=== PATIENT | female | born 1990 | race Two or more races ===

== ENCOUNTER 2018-07-05 11:40 | Observation (INO) | payer MEDICAID ==
[~2018-07-05] VITALS: Ht 154.9 cm; Wt 63.5 kg
[2018-07-05] MEDS ORDERED: ONDANSETRON HCL 4 MG/2 ML VIAL IV ONE ×2 (12:00→15:00)
[2018-07-05] MEDS ORDERED: SODIUM CHLORIDE 0.9% 1,000 ML IVB ONE (12:00)
[2018-07-05] MEDS ORDERED: DEXTROSE (50%) 50ML SYRG IV ONE (12:45)
[2018-07-05 12:53] LABS: Basophils # (auto) 0.2 uL; Basophils % (auto) 1.6 % (0.0-2.0); Eosinophils # (auto) 0.4 uL; Eosinophils % (auto) 3.6 % (0.0-7.0); Hematocrit 33.8 % (36.0-46.0); Hemoglobin 11.1 g/dL (12.2-16.2); Lymphocytes # (auto) 1.4 uL; Lymphocytes % (auto) 13.4 % (10.0-50.0); Mean Corpuscular Hemoglobin 27.7 pg (28.0-32.0); Mean Corpuscular Hgb Conc. 32.7 g/dL (32.0-36.0); Mean Corpuscular Volume 84.6 fL (80.0-100.0); Monocytes # (auto) 0.3 uL; Monocytes % (auto) 2.9 % (0.0-12.0); Neutrophils # (auto) 8.2 uL; Neutrophils % (auto) 78.5 % (37.0-80.0); Platelet Count (auto) 335 10^3/uL (140-450); Red Cell Distribution Width 13.3 % (11.8-14.3); White Blood Cell 10.4 10^3/uL (4.4-10.8)
[2018-07-05] MEDS ORDERED: D5W/SOD CHLO 0.9% 1,000 ML IV ONE (13:00)
[2018-07-05] MEDS ORDERED: D5W/SOD CHLO 0.9% 500 ML IV ONE ×2 (13:15→18:00)
[2018-07-05 13:31] LABS: Albumin 2.7 g/dL (3.4-5.0); BUN/Creatinine Ratio 13.2; Calcium 7.6 mg/dL (8.5-10.1); Magnesium 1.9 mg/dL (1.6-2.6); Potassium 3.5 mmol/L (3.5-5.1)
[2018-07-05 13:34] LABS: Bilirubin, Total 0.2 mg/dL (0.2-1.0); Total Protein 6.8 g/dL (6.4-8.2)
[2018-07-05 13:52] LABS: Amylase 47 U/L (25-115); Lipase 67 U/L (73-393)
[2018-07-05 14:06] LABS: INR 0.93 (0.9-1.15)
[2018-07-05] MEDS ORDERED: METOCLOPRAMIDE HCL 5MG/ml INJ 2ml VIAL IV ONE (14:15)
[2018-07-05] MEDS ORDERED: MORPHINE SULFATE 4 MG/ML SYR/VIAL IV ONE (15:00)
[2018-07-05 15:32] LABS: Urine Bacteria FEW /hpf (None Seen); Urine Blood Negative /uL (Negative); Urine Specific Gravity 1.006 (1.001-1.035); Urine WBC 1 /hpf (0 - 5)
[2018-07-05 15:50] LABS: Alcohol, Urine < 3.0 mg/dL (0-5); Amphetamine Screen, Urine NEGATIVE (NEGATIVE); Barbiturate Scree,Urine NEGATIVE (NEGATIVE); Benzodiazephine Screen, Urine NEGATIVE (NEGATIVE); Cannabinoid Screen, Urine POSITIVE (NEGATIVE); Cocaine Screen, Urine NEGATIVE (NEGATIVE); Opiate Scree,Urine NEGATIVE (NEGATIVE); Phencyclidine Screen, Urine NEGATIVE (NEGATIVE)
[2018-07-05] MEDS ORDERED: cefTRIAXone 1GM/10ml IVPUSH 10 ML IV ONE (16:30)
[2018-07-05 18:26] VITALS: BP 109/71
== END 2018-07-05 18:38 | disposition short-term general hospital (02) | DRG 566 ==
LOC: ER 11:40 → EDBD 11:40 → OVERFLOW 11:41 → ER 18:38
PROVIDERS: ADMIT Family Medicine; ATTEND Family Medicine
DX: O21.9 Vomiting of pregnancy, unspecified (principal); O26.892 Other specified pregnancy related conditions, second trimester; R10.9 Unspecified abdominal pain; Z3A.18 18 weeks gestation of pregnancy
CPT/HCPCS: 36415; 76805; 80053; 80307; 81001; 82150; 82962; 83690; 83735; 84702; 85025; 85610; 85730; 96361; 96374; 96375; 96376; 99285; G0378; J0696; J2270; J2405; J2765; J7030; J7042; J7060

== ENCOUNTER 2018-08-11 21:25 | Emergency (ER) | payer MEDICAID ==
[~2018-08-11] VITALS: Ht 152.4 cm; Wt 71.2 kg
[2018-08-11] MEDS ORDERED: ONDANSETRON HCL 4 MG/2 ML VIAL ONE (21:31)
[2018-08-11] MEDS ORDERED: ONDANSETRON HCL 4 MG/2 ML VIAL IV ONE ×2 (21:45→22:30)
[2018-08-11 22:28] LABS: Basophils # (auto) 0.1 uL; Basophils % (auto) 0.4 % (0.0-2.0); Eosinophils # (auto) 0.1 uL; Eosinophils % (auto) 0.4 % (0.0-7.0); Hematocrit 35.9 % (36.0-46.0); Hemoglobin 11.4 g/dL (12.2-16.2); Lymphocytes # (auto) 2.2 uL; Lymphocytes % (auto) 13.3 % (10.0-50.0); Mean Corpuscular Hemoglobin 27.4 pg (28.0-32.0); Mean Corpuscular Hgb Conc. 31.7 g/dL (32.0-36.0); Mean Corpuscular Volume 86.4 fL (80.0-100.0); Monocytes # (auto) 0.5 uL; Neutrophils # (auto) 13.6 uL; Neutrophils % (auto) 82.9 % (37.0-80.0); Nucleated Red Blood Cells % 0.1 %; Platelet Count (auto) 398 10^3/uL (140-450); Red Blood Cells 4.16 10^6/uL (4.0-5.20); Red Cell Distribution Width 15.2 % (11.8-14.3); White Blood Cell 16.4 10^3/uL (4.4-10.8)
[2018-08-11 22:42] LABS: Alanine Aminotransferase 21 U/L (13-56); Anion Gap 13 (5-15); Aspartate Aminotransferase 19 U/L (15-37); BUN/Creatinine Ratio 15.7; Blood Urea Nitrogen 8 mg/dL (7-18); Calcium 8.6 mg/dL (8.5-10.1); Carbon Dioxide 19 mmol/L (21-32); Chloride 106 mmol/L (98-107); GFR African American 187 mL/min; GFR Non-African American 155 mL/min; Glucose 103 mg/dL (74-106); Potassium 3.6 mmol/L (3.5-5.1); Sodium 138 mmol/L (136-145)
[2018-08-11 22:45] LABS: Alkaline Phosphatase 128 U/L (45-117); Bilirubin, Total 0.3 mg/dL (0.2-1.0); Total Protein 7.9 g/dL (6.4-8.2)
[2018-08-11] MEDS ORDERED: METOCLOPRAMIDE HCL 5MG/ml INJ 2ml VIAL IV ONE (23:45)
[2018-08-12] MEDS ORDERED: MVI in SODIUM CHLORIDE 0.9% 1,010 ML ONE (00:07)
[2018-08-12] MEDS ORDERED: ALUM & MAG HYDROX-SIMETH LIQ(MAALOX) 30 ML PO ONE (01:30)
[2018-08-12] MEDS ORDERED: ONDANSETRON HCL 4 MG/2 ML VIAL ONE (01:42)
[2018-08-12] MEDS ORDERED: ONDANSETRON HCL 4 MG/2 ML VIAL IV ONE (01:45)
[2018-08-12] MEDS ORDERED: SODIUM CHLORIDE 0.9% 1,000 ML IV ONE (01:45)
[2018-08-12 03:48] VITALS: BP 122/70
[2018-08-12] MEDS ORDERED: MULTIPLE VITAMIN IV SCH (12:00)
[2018-08-12] MEDS ORDERED: FOLIC ACID IV SCH (12:00)
[2018-08-12] MEDS ORDERED: [UNRECOGNIZED DRUG - OTHER] IV SCH (12:00)
[2018-08-12] MEDS ORDERED: THIAMINE IV SCH (12:00)
== END 2018-08-12 04:01 | disposition short-term general hospital (02) ==
LOC: ER 21:25 → EDBD 21:25 → ER 08-12 04:01
DX: O21.0 Mild hyperemesis gravidarum (principal); O26.892 Other specified pregnancy related conditions, second trimester; O99.342 Other mental disorders complicating pregnancy, second trimester; F41.9 Anxiety disorder, unspecified; E86.0 Dehydration; D72.829 Elevated white blood cell count, unspecified; Z3A.23 23 weeks gestation of pregnancy
CPT/HCPCS: 36415; 76805; 80053; 83690; 85025; 96361; 96365; 96375; 96376; 99285; J2405; J2765; J3411; J3475; J7030

== ENCOUNTER 2018-08-21 15:42 | Emergency (ER) | payer MEDICAID ==
[~2018-08-21] VITALS: Ht 152.4 cm; Wt 68.9 kg
[2018-08-21 13:57] LABS: Basophils # (auto) 0 uL; Basophils % (auto) 0.3 % (0.0-2.0); Eosinophils # (auto) 0.1 uL; Hematocrit 30.2 % (36.0-46.0); Lymphocytes # (auto) 1.3 uL; Lymphocytes % (auto) 13.3 % (10.0-50.0); Mean Corpuscular Hemoglobin 28.1 pg (28.0-32.0); Mean Corpuscular Hgb Conc. 33.1 g/dL (32.0-36.0); Monocytes # (auto) 0.3 uL; Monocytes % (auto) 2.7 % (0.0-12.0); Neutrophils # (auto) 8.3 uL; Neutrophils % (auto) 82.7 % (37.0-80.0); Platelet Count (auto) 401 10^3/uL (140-450); Red Blood Cells 3.55 10^6/uL (4.0-5.20); White Blood Cell 10.1 10^3/uL (4.4-10.8)
[2018-08-21 14:15] LABS: Albumin 2.6 g/dL (3.4-5.0); Calcium 7.7 mg/dL (8.5-10.1); Potassium 3.7 mmol/L (3.5-5.1)
[2018-08-21 14:19] LABS: BUN/Creatinine Ratio 14.9; Bilirubin, Total 0.2 mg/dL (0.2-1.0); Total Protein 6.9 g/dL (6.4-8.2)
[2018-08-21 15:19] LABS: Urine Bacteria FEW /hpf (None Seen); Urine Blood Negative /uL (Negative); Urine Mucus FEW (None Seen); Urine Specific Gravity 1.011 (1.001-1.035); Urine WBC 11 /hpf (0 - 5)
[2018-08-21 15:29] LABS: Alcohol, Urine < 3.0 mg/dL (0-5); Amphetamine Screen, Urine NEGATIVE (NEGATIVE); Barbiturate Scree,Urine NEGATIVE (NEGATIVE); Benzodiazephine Screen, Urine NEGATIVE (NEGATIVE); Cannabinoid Screen, Urine POSITIVE (NEGATIVE); Cocaine Screen, Urine NEGATIVE (NEGATIVE); Opiate Scree,Urine NEGATIVE (NEGATIVE); Phencyclidine Screen, Urine NEGATIVE (NEGATIVE)
[~2018-08-21 15:42] MED LIST: FAMOTIDINE (10MG/ML) 2ML VL IV ONE; GABA100C9 PO; METH-562 PO; METO10TA3 PO; ONDA4TAB5 PO; PRO10T PO; PROM25TA5 PR; PYRI50TA71 PO; SERT-138 PO; SODIUM CHLORIDE 0.9% 1,000 ML IV ONE
[2018-08-21] MEDS ORDERED: SODIUM CHLORIDE 0.9% 1,000 ML IVB ONE (16:47)
[2018-08-21] MEDS ORDERED: PROMETHAZINE HCL 25 MG/ML 1ML ONE (17:12)
[2018-08-21] MEDS ORDERED: PROMETHAZINE HCL 25 MG/ML 1ML IV ONE ×2 (17:15→20:00)
[2018-08-21 17:39] LABS: INR 0.89 (0.9-1.15); Partial Thromboplastin Time 27.7 sec (23.78-33.04); Prothrombin Time 9.6 sec (9.27-12.13)
[2018-08-21 17:39] LABS: Basophils # (auto) 0 uL; Basophils % (auto) 0.4 % (0.0-2.0); Eosinophils # (auto) 0.1 uL; Eosinophils % (auto) 0.5 % (0.0-7.0); Hematocrit 29.6 % (36.0-46.0); Hemoglobin 9.7 g/dL (12.2-16.2); Lymphocytes % (auto) 18.4 % (10.0-50.0); Mean Corpuscular Hgb Conc. 32.9 g/dL (32.0-36.0); Monocytes # (auto) 0.4 uL; Monocytes % (auto) 3.4 % (0.0-12.0); Neutrophils # (auto) 8.4 uL; Neutrophils % (auto) 77.3 % (37.0-80.0); Nucleated Red Blood Cells % 0.1 %; Platelet Count (auto) 397 10^3/uL (140-450); Red Blood Cells 3.48 10^6/uL (4.0-5.20); Red Cell Distribution Width 15.2 % (11.8-14.3); White Blood Cell 10.9 10^3/uL (4.4-10.8)
[2018-08-21 17:44] LABS: Albumin 2.4 g/dL (3.4-5.0); Amylase 44 U/L (25-115); Anion Gap 11 (5-15); Blood Urea Nitrogen 5 mg/dL (7-18); Calcium 7.3 mg/dL (8.5-10.1); Carbon Dioxide 17 mmol/L (21-32); Chloride 109 mmol/L (98-107); Glucose 163 mg/dL (74-106); Lipase 109 U/L (73-393); Magnesium 1.8 mg/dL (1.6-2.6); Potassium 3.7 mmol/L (3.5-5.1); Sodium 137 mmol/L (136-145)
[2018-08-21 17:46] LABS: Alanine Aminotransferase 21 U/L (13-56); Aspartate Aminotransferase 19 U/L (15-37); BUN/Creatinine Ratio 12.8; GFR African American 255 mL/min; GFR Non-African American 211 mL/min
[2018-08-21 17:48] LABS: Alkaline Phosphatase 114 U/L (45-117); Bilirubin, Total 0.3 mg/dL (0.2-1.0); Total Protein 6.5 g/dL (6.4-8.2)
[2018-08-21] MEDS ORDERED: cefTRIAXone 1GM/50ML D5W 50 ML IV ONE (18:30)
[2018-08-21] MEDS ORDERED: ACETAMINOPHEN 325 MG TAB PO ONE ×2 (18:36→18:45)
[2018-08-21 19:33] VITALS: BP 111/76
== END 2018-08-21 20:18 | disposition home or self-care (01) ==
LOC: ER 15:42 → EDSTATUS 15:42 → ER 20:18
DX: O21.9 Vomiting of pregnancy, unspecified (principal); O23.42 Unspecified infection of urinary tract in pregnancy, second trimester; R11.0 Nausea; E11.9 Type 2 diabetes mellitus without complications; Z91.041 Radiographic dye allergy status; Z79.899 Other long term (current) drug therapy; Z3A.26 26 weeks gestation of pregnancy
CPT/HCPCS: 36415; 59025; 76805; 80053; 80307; 81001; 81002; 82150; 82962; 83690; 83735; 85025; 85610; 85730; 94761; 96361; 96365; 96375; 96376; 99285; J0696; J2550; J3490; J7030